=== PATIENT | female | born 1930 | race Hispanic/Latino ===

== ENCOUNTER 2018-11-06 13:35 | Observation (INO) | payer OTHER ==
[~2018-11-06] VITALS: Ht 149.9 cm; Wt 71.2 kg
[2018-11-06] MEDS ORDERED: SODIUM CHLORIDE 0.9% 1000ML 1,000 ML IV ONE ×2 (14:16→16:21)
[2018-11-06] MEDS ORDERED: SODIUM CHLORIDE 0.9% 50 ML IV ONE (14:16)
[2018-11-06 14:22] LABS: BASOPHILS % (AUTO) 0.2 % (0.0-5.0); EOSINOPHILS % (AUTO) 1.2 % (0.0-8.0); HEMATOCRIT 36.4 % (36-48); MEAN CORPUSCULAR HEMOGLOBIN 30.7 pg (27.0-33.0); MEAN CORPUSCULAR HGB CONC 33.5 g/dL (32.0-36.0); MEAN CORPUSCULAR VOLUME 91.6 fL (79-99); MONOCYTES % (AUTO) 3.1 % (3.0-13.0); NEUTROPHILS % (AUTO) 81.5 % (40.0-77.0); PLATELET COUNT (AUTO) 292 K/uL (130-400); RED BLOOD CELL COUNT(AUTO) 3.97 MIL/uL (4.00-5.50); RED CELL DISTRIBUTION WIDTH 14.5 % (11.0-15.5); WHITE BLOOD COUNT (AUTO) 7.6 K/uL (4.8-10.8)
[2018-11-06 14:30] LABS: INR 0.93 (0.85-1.15); PARTIAL THROMBOPLASTIN TIME 32.9 SEC (26.3-35.5); PROTHROMBIN TIME 9.8 SEC (9.6-11.6)
[2018-11-06 14:34] LABS: CARBON DIOXIDE 26 mmol/L (21-32); CHLORIDE 101 mmol/L (101-111); CREATININE 0.9 mg/dL (0.5-1.5); GLOMERULAR FILTR. RATE CALC 63 mL/min (>60); GLUCOSE,RANDOM 131 mg/dL (70-105); POTASSIUM 4.2 mmol/L (3.5-5.1); SODIUM SERUM 138 mmol/L (136-145); UREA NITROGEN, BLOOD 24 mg/dL (7-18)
[2018-11-06 14:41] LABS: ALANINE AMINOTRANSFERASE 22 U/L (12-78); ALBUMIN 3.5 g/dL (3.5-5.0); ASPARTATE AMINOTRANSFERASE 18 U/L (10-37); BILIRUBIN,TOTAL 0.3 mg/dL (0.2-1.0); CREATINE KINASE, TOTAL 95 U/L (21-232); MYOGLOBIN 80 ng/mL (10-92); TOTAL PROTEIN, SERUM 7.6 g/dL (6.0-8.3); TROPONIN I < 0.04 ng/mL (0.00-0.06)
[2018-11-06 14:46] LABS: APPEARANCE,URINE Clear (CLEAR); BILIRUBIN,URINE Negative (NEGATIVE); COLOR,URINE Yellow (YELLOW); GLUCOSE, URINE (UA) Negative (NEGATIVE); KETONES,URINE Negative (NEGATIVE); LEUKOCYTE ESTERASE ,URINE Moderate (NEGATIVE); NITRATE,URINE Negative (NEGATIVE); OCCULT BLOOD,URINE Negative (NEGATIVE); PROTEIN,URINE Trace mg/dL (NEGATIVE); UROBILINOGEN,URINE 0.2 mg/dL (0.2-1.0)
[2018-11-06 14:55] LABS: BACTERIA,URINE Rare /HPF (None Seen); RBC,URINE 0-1 /HPF (0-1); SQUAMOUS EPITHELIAL CELL,UR Few /HPF (0-2)
[2018-11-06] MEDS ORDERED: HYDROCODONE/ACETAMINOPHEN 5/325 MG TAB PO PRN (16:30)
[2018-11-06] MEDS ORDERED: HYDRALAZINE HCL 20 MG/ML VIAL IV PRN (16:30)
[2018-11-06] MEDS ORDERED: MORPHINE SULFATE 2 MG/ML 1ML SYG IVP PRN (16:30)
[2018-11-06] MEDS ORDERED: VANCOMYCIN PROTOCOL PER PHARMACY IV SCH (18:00)
[2018-11-06] MEDS ORDERED: VANCOMYCIN 1.5 GM in SODIUM CHLORIDE 0.9% 250 ML IV ONE (18:00)
[2018-11-06] MEDS ORDERED: COMPOUND IV REFRIGERATED 1 EACH IVSOLN MISC PRN (18:00)
[2018-11-06] MEDS: CEFTAZIDIME PENTAHYDRATE 1 GM/VIAL IVP SCH (18:00)
[2018-11-06 21:00] VITALS: BP 124/47
[2018-11-06] MEDS: SODIUM CHLORIDE 0.9% 1000ML 1,000 ML IV SCH (21:00)
[2018-11-06] MEDS ORDERED: DEXTROSE 50%-WATER 50 ML DISP.SYRIN IV PRN (21:30)
[2018-11-06] MEDS ORDERED: GLUCAGON 1MG KIT 1 MG ML IM PRN (21:30)
[2018-11-07] VITALS (7 sets, daily range): BP systolic 104–129; BP diastolic 51–78
[2018-11-07] MEDS: SODIUM CHLORIDE 0.9% 1000ML 1,000 ML IV SCH ×2 (04:06→13:21)
[2018-11-07] MEDS: CEFTAZIDIME PENTAHYDRATE 1 GM/VIAL IVP SCH ×2 (06:12→18:01)
[2018-11-07 06:14] LABS: HEMATOCRIT 32.7 % (36-48); MEAN CORPUSCULAR HEMOGLOBIN 30.4 pg (27.0-33.0); MEAN CORPUSCULAR HGB CONC 33.2 g/dL (32.0-36.0); MEAN CORPUSCULAR VOLUME 91.8 fL (79-99); PLATELET COUNT (AUTO) 286 K/uL (130-400); RED BLOOD CELL COUNT(AUTO) 3.57 MIL/uL (4.00-5.50); WHITE BLOOD COUNT (AUTO) 7.5 K/uL (4.8-10.8)
[2018-11-07 06:28] LABS: CREATININE 0.9 mg/dL (0.5-1.5); POTASSIUM 3.6 mmol/L (3.5-5.1)
[2018-11-07] MEDS: INSULIN R PO SS1 SQ SCH ×4 (07:18→21:00)
[2018-11-07] MEDS ORDERED: LORA10CA9 PO (13:00)
[2018-11-07] MEDS: ENOXAPARIN SODIUM 40 MG/0.4 ML SYRINGE SQ SCH (13:15)
--- NOTE | 2018-11-07 13:30 | NUR ---
INITIAL MET W PT, UP IN [place], AAOX3; STATES LIVES [place], MOSTLY INDEPENDENT OF ADLS, HAS ROLLING WALKER, NO PROVIDER SERVICES, DCP HOME PT HERE FOR BLE CELLULITIS, LEFT LEG VERY VERY RED. ADIVSED HER THAT SOME TIMES THESE TYPE OF INFECIOTNS REQUIRE IV ABX, VERBALIZED UNDERSTANDING. ASK DR. SALCEDO, HE STATES PT WILL GO [place] TOMORROW TO FOLLOW UP W PRIMARY MD DCP HOME, WILL FOLLOW Addendum: 11/07/18 at 1648 by MIKA ALFORD RN CM Amended: Links added.
[2018-11-07] MEDS: VANCOMYCIN 750MG + NS 250 ML IV SCH ×2 (18:04)
[2018-11-08 04:00] VITALS: BP 130/72
[2018-11-08] MEDS: CEFTAZIDIME PENTAHYDRATE 1 GM/VIAL IVP SCH ×2 (05:51→17:54)
[2018-11-08] MEDS: SODIUM CHLORIDE 0.9% 1000ML 1,000 ML IV SCH (05:52)
[2018-11-08] MEDS: INSULIN R PO SS1 SQ SCH ×4 (06:51→21:07)
[2018-11-08 07:00] VITALS: BP 114/52
--- NOTE | 2018-11-08 08:00 | NUR ---
AM SHIFT ASSESSMENT. SITTING IN CHAIR. FEET ELEVATED ON STOOL. HAS A 2 PLUS PITTING EDEMA TO FEET AND LT. LOOKS A LITTLE REDDER THAN RT. STATES DO NOT REALLY HURT, JUST UNCOMFORTABLE. SM CLEAN DRESSING IN PLACE TO RT. 4TH. TOE. SOME KIND OF NAIL PROBLEM.
[2018-11-08] MEDS: ACETAMINOPHEN 325 MG TAB PO PRN ×2 (08:19→22:51)
[2018-11-08] MEDS: ENOXAPARIN SODIUM 40 MG/0.4 ML SYRINGE SQ SCH (08:20)
[2018-11-08 11:00] VITALS: BP 121/67
[2018-11-08 16:00] VITALS: BP 118/63
--- NOTE | 2018-11-08 17:01 | NUR ---
REFERRAL TO KD GROSS AT 1615 ORDER FOR [facility] REFERRAL. DR. GROSS SPOKE TO ASSEMBLER SURGICAL GARMENT AT [facility] CONSENT RECD FROM FAMILY. KD REP CALLED, ORDERS CLARIFIED, MED REC COMPLETED PKT SENT/FAXED /EMAILED TO [facility] AND TO [facility]. AWAITING APPROVAL Addendum: 11/08/18 at 1925 by MIKA ALFORD RN CM Amended: Links added. Addendum: 11/09/18 at 1422 by MIKA ALFORD RN CM Please note- Just after Dr. Gross spoke to medical sonographer at [facility], he gave this CM's number to Med director and MD called me to say that should would give authorization for a SNF for a week of IV ABX. I advised her to pls call/contact [facility] and this CM would start the referral process
--- NOTE | 2018-11-08 17:35 | NUR ---
[place] TROUGH DRAWN NOW.
[2018-11-08 19:28] VITALS: BP 135/70
[2018-11-08] MEDS: VANCOMYCIN 750MG + NS 250 ML IV SCH ×2 (21:08)
[2018-11-09] VITALS: BP 136/66
[2018-11-09 04:00] VITALS: BP 133/63
[2018-11-09] MEDS: SODIUM CHLORIDE 0.9% 1000ML 1,000 ML IV SCH (04:10)
[2018-11-09] MEDS: CEFTAZIDIME PENTAHYDRATE 1 GM/VIAL IVP SCH ×2 (05:05→16:51)
[2018-11-09] MEDS: INSULIN R PO SS1 SQ SCH ×2 (05:48→17:36)
--- NOTE | 2018-11-09 06:40 | NUR ---
Nursing Note Spoke with pharmacy to re-profile vancomycin for 0900 on 11/09/18 since 11/08/18 dose was given at 2100. Pharmacy stated they would.
[2018-11-09 07:00] VITALS: BP 125/60
[2018-11-09] MEDS ORDERED: VANCOMYCIN 500MG+NS 100ML 100 ML IV SCH (09:00)
[2018-11-09] MEDS: VANCOMYCIN 500MG+NS 100ML 100 ML IV SCH ×2 (09:48→16:52)
[2018-11-09] MEDS: ENOXAPARIN SODIUM 40 MG/0.4 ML SYRINGE SQ SCH (09:49)
[2018-11-09 11:00] VITALS: BP 148/74
--- NOTE | 2018-11-09 14:24 | NUR ---
CALL FROM KD AGARWAL FROM [facility] STATES THEIR COMPANY IS WILLING TO TAKE PT TODAY , [place] FOR SUNDAY [place] THE MED DIRECTOR SAID SHE WOULD GIVE MANUEL NINA DIRECTOR IN QUESTION WAS ANNA SCHULTE (sp?) ON SUNDAY Addendum: 11/09/18 at 1426 by MIKA ALFORD RN CM Amended: Links added.
[2018-11-09 16:00] VITALS: BP 127/77
--- NOTE | 2018-11-09 16:00 | NUR ---
MED. RECORD FAXED TO [phone].
[2018-11-09] MEDS: ACETAMINOPHEN 325 MG TAB PO PRN (16:52)
--- NOTE | 2018-11-09 17:05 | NUR ---
REPORT CALLED, TALKED TO KACY JIMENEZ.
--- NOTE | 2018-11-09 18:00 | NUR ---
discharged now using [facility] back.[facility] staff provided transportation. all personal belongings send.
== END 2018-11-09 18:00 ==
LOC: EDH 13:35 → EDHIP 14:49 → 3CH 20:32
PROVIDERS: ADMIT Internal Medicine Critical Care Medicine; ATTEND Internal Medicine Critical Care Medicine
DX: L03.115 Cellulitis of right lower limb (principal); L03.116 Cellulitis of left lower limb; E11.9 Type 2 diabetes mellitus without complications; I10 Essential (primary) hypertension; R60.9 Edema, unspecified; L03.031 Cellulitis of right toe; Z79.899 Other long term (current) drug therapy; Z79.01 Long term (current) use of anticoagulants
CPT/HCPCS: 36415 ×3; 71045; 80048; 80053; 80202; 81001; 82550; 82948 ×12; 83605 ×2; 83874; 84484; 85025; 85027; 85610; 85730; 87040 ×2; 87088; 93005; 93970; 96365; 96366 ×3; 96372 ×3; 96375; 96376 ×3; 99284; G0378 ×74; J0713 ×7; J1650 ×3; J1815 ×4; J3370 ×3; J7030 ×5